=== PATIENT | male | born 1935 | race Caucasian/White ===

== ENCOUNTER → 2016-06-19 | Outpatient (CLI) | payer MEDICARE, BC | END | disposition disaster alternative care site (69) | LOC: GRAD 13:20 | DX: G31.84 Mild cognitive impairment of uncertain or unknown etiology (principal); I95.9 Hypotension, unspecified; R25.1 Tremor, unspecified; R29.2 Abnormal reflex; G31.9 Degenerative disease of nervous system, unspecified ==